=== PATIENT | female | born 1945 | race American Indian/Alaskan Native ===

== ENCOUNTER 2016-06-29 12:27 | Outpatient (CLI) | payer MEDICARE ==
--- NOTE | 2016-06-29 14:07 | Mammography Report ---
BILATERAL MAMMOGRAM with CAD: HISTORY: Cancer screening. Comparison study is dated January 21, 2014. FINDINGS: There are scattered fibroglandular densities (approximately 25%-50% glandular). No mass, distortion, suspicious calcification, or skin change is seen. IMPRESSION: Negative mammogram. There is no mammographic evidence of malignancy. RECOMMENDATION: Follow-up per ACS guidelines. BI-RADS CATEGORY: 1 = Negative ACR BI-RADS MAMMOGRAPHIC CODES: 0 = Needs additional imaging evaluation; 1 = Negative; 2 = Benign; 3 = Probably benign; 4 = Suspicious; 5 = Malignant; 6 = Known biopsy-proven malignancy COMMENT: 1. Dense breast tissue, i.e., adenosis, fibrocystic changes, etc., may obscure an underlying neoplasm. 2. Approximately 10% of cancers are not detected with mammography. 3. A negative mammography report should not delay biopsy if a clinically suspicious mass is present. COMMENT: Patient follow-up letters are generated in [employer].
== END 2016-06-29 12:28 | disposition home or self-care (01) ==
LOC: MAMMO 12:27
PROVIDERS: ATTEND Family Medicine
DX: Z12.31 Encounter for screening mammogram for malignant neoplasm of breast (principal)
CPT/HCPCS: 77067; G0202

== ENCOUNTER 2017-11-25 04:23 | Emergency (ER) | payer MEDICARE ==
[2017-11-25] MEDS ORDERED: TORADOL IV ONE (05:01)
[2017-11-25] MEDS ORDERED: ZOFRAN IV ONE (05:01)
[2017-11-25] MEDS ORDERED: MORPHINE IV ONE (08:51)
--- NOTE | 2017-11-25 08:56 | Emergency Department Report ---
ED Abdominal Pain HPI - General Chief Complaint: Back Pain/Injury Stated Complaint: PAIN ON LEFT SIDE Time Seen by Provider: 11/25/17 08:47 Source: patient Mode of arrival: Ambulatory Limitations: No Limitations - History of Present Illness Initial Comments: Patient is 72 years old female with history of hypertension and diabetes. Patient presented to the ER complaining of left flank pain for the last 2 days. Patient stated that pain is associated with nausea and vomiting. Patient denied any urinary symptoms. She denied any chest pain or shortness of breath. Patient also denied diarrhea or fever. MD Complaint: flank pain -: days(s) Location: L flank Radiation: none Migration to: no migration Severity: moderate Severity scale (0 -10): 9 Quality: sharp - Related Data Home Medications Medication Instructions Recorded Confirmed Last Taken Lisinopril [Zestril TAB] 20 mg PO QDAY 01/16/14 01/16/14 01/16/14 07:00 NIFEdipine XL [Procardia Xl] 30 mg PO QDAY 01/16/14 01/16/14 01/16/14 07:00 Simvastatin [Zocor TAB] 20 mg PO QDAY 01/16/14 01/16/14 01/16/14 07:00 metFORMIN [Glucophage] 500 mg PO BID 01/16/14 01/16/14 01/16/14 07:00 Allergies Allergy/AdvReac Type Severity Reaction Status Date / Time No Known Allergies Allergy Unverified 01/16/14 11:20 ED Review of Systems ROS: Stated complaint: PAIN ON LEFT SIDE Other details as noted in HPI Comment: All other systems reviewed and negative Constitutional: denies: chills, fever Cardiovascular: denies: chest pain, palpitations, dyspnea on exertion, orthopnea Gastrointestinal: abdominal pain, nausea, vomiting. denies: diarrhea, constipation, hematemesis, melena, hematochezia Genitourinary: denies: urgency, dysuria, frequency, hematuria Neurological: denies: headache, weakness, numbness, paresthesias, confusion, abnormal gait ED Past Medical Hx - Past Medical History Hx Hypertension: Yes Hx Diabetes: Yes Hx GERD: Yes - Social History Smoking Status: Former Smoker - Medications Home Medications: Home Medications Medication Instructions Recorded Confirmed Last Taken Type Lisinopril [Zestril TAB] 20 mg PO QDAY 01/16/14 01/16/14 01/16/14 07:00 History NIFEdipine XL [Procardia Xl] 30 mg PO QDAY 01/16/14 01/16/14 01/16/14 07:00 History Simvastatin [Zocor TAB] 20 mg PO QDAY 01/16/14 01/16/14 01/16/14 07:00 History metFORMIN [Glucophage] 500 mg PO BID 01/16/14 01/16/14 01/16/14 07:00 History ED Physical Exam - General Limitations: No Limitations General appearance: alert, in no apparent distress - Head Head exam: Present: atraumatic, normocephalic, normal inspection - Eye Eye exam: Present: normal appearance - ENT ENT exam: Present: normal exam, normal orophraynx, mucous membranes moist - Neck Neck exam: Present: normal inspection, full ROM. Absent: tenderness - Respiratory Respiratory exam: Present: normal lung sounds bilaterally. Absent: respiratory distress, wheezes, rales, rhonchi, stridor, accessory muscle use, decreased breath sounds, prolonged expiratory - Cardiovascular Cardiovascular Exam: Present: regular rate, normal rhythm, normal heart sounds - GI/Abdominal GI/Abdominal exam: Present: soft. Absent: distended, tenderness, guarding, rebound, rigid, normal bowel sounds, organomegaly, mass, bruit, pulsatile mass, hernia - Extremities Exam Extremities exam: Present: normal inspection, full ROM, normal capillary refill - Back Exam Back exam: Present: full ROM, CVA tenderness (L). Absent: tenderness, CVA tenderness (R), muscle spasm, paraspinal tenderness, vertebral tenderness, rash noted - Neurological Exam Neurological exam: Present: alert, oriented X3, CN II-XII intact, normal gait - Skin Skin exam: Present: warm, intact, normal color ED Course Vital Signs 11/25/17 11/25/17 11/25/17 04:43 06:50 09:15 Temperature 97.9 F 98.6 F Pulse Rate 60 60 Respiratory 18 18 18 Rate Blood Pressure 156/77 Blood Pressure 175/79 [Left] O2 Sat by Pulse 100 100 Oximetry 11/25/17 09:33 Temperature Pulse Rate Respiratory 14 Rate Blood Pressure Blood Pressure [Left] O2 Sat by Pulse 100 Oximetry ED Medical Decision Making - Lab Data Result diagrams: 11/25/17 09:13 11/25/17 09:13 - EKG Data EKG shows normal: sinus rhythm Rate: bradycardia - EKG Data Interpretation: no acute changes - Radiology Data Radiology results: report reviewed CT abdomen and pelvis revealed no acute findings. - Medical Decision Making Patient stated that she is feeling much better. Her abdominal pain is completely resolved. Patient stated that she meant just slept wrong. I advised patient to follow up with her primary care physician in the next 2-3 days and to return to the ER if her symptoms are coming back or getting worse. Critical care attestation.: If time is entered above; I have spent that time in minutes in the direct care of this critically ill patient, excluding procedure time. ED Disposition Clinical Impression: Abdominal pain Disposition: DC-01 TO HOME OR SELFCARE Is pt being admited?: No Condition: Stable Instructions: Abdominal Pain (ED) Referrals: PRIMARY CARE, [Primary Care Provider] - 3-5 Days
[2017-11-25 09:17] VITALS: BP 175/79
[2017-11-25 09:26] LABS: Bilirubin,Urine NEG (Negative); Blood,Urine NEG (Negative); Color,Urine Yellow (Yellow); Hyaline Casts,Urine 10 /LPF; Mucus,Urine 1+ /HPF; Urobilinogen,Urine < 2.0 mg/dL (<2.0)
[2017-11-25 09:47] LABS: Basophils % (Auto) 0.5 % (0.0-1.8); Eosinophils % (Auto) 0.3 % (0.0-4.3); Hematocrit 38.3 % (30.3-42.9); Hemoglobin 12.4 gm/dl (10.1-14.3); Lymphocytes # (Auto) 1.6 K/mm3 (1.2-5.4); Lymphocytes % (Auto) 23.7 % (13.4-35.0); Mean Corpuscular HGB Conc 33 % (30-34); Mean Corpuscular Hemoglobin 30 pg (28-32); Mean Corpuscular Volume 92 fl (79-97); Monocytes # (Auto) 0.5 K/mm3 (0.0-0.8); Monocytes % (Auto) 7.2 % (0.0-7.3); Platelet Count 249 K/mm3 (140-440); Red Blood Count 4.18 M/mm3 (3.65-5.03); Red Cell Distribution Width 12.1 % (13.2-15.2)
[2017-11-25 09:53] LABS: Alanine Aminotransferase 11 units/L (7-56); Albumin 4.3 g/dL (3.9-5); BUN/Creatinine Ratio 16; Blood Urea Nitrogen 11 mg/dL (7-17); Calcium 9.2 mg/dL (8.4-10.2); Hemolysis Index 7
--- NOTE | 2017-11-27 14:26 | Cat Scan Report ---
FINAL REPORT EXAM: CT ABDOMEN PELVIS WO CON HISTORY: R flank pain TECHNIQUE: CT images obtained through the Abdomen and Pelvis without contrast. Transaxial,coronal and sagittal reformats are provided. PRIORS: None. FINDINGS: Imaged intrathoracic contents are remarkable for coronary artery disease. Kidneys are normal in size, axis and position. No hydronephrosis or nephrolithiasis. The ureters are normal in course and caliber. No stones are seen within the urinary bladder. Multiple pelvic phleboliths. Anteverted uterus with fibroid associated calcification. A couple of punctate calcified granulomas are present within the liver. The liver, gallbladder, pancreas, spleen, and adrenal glands otherwise demonstrate an unremarkable noncontrast appearance. Hollow enteric organs are normal in course and caliber. No findings of acute appendicitis. No intra-abdominal free air/fluid or lymphadenopathy. Aorta is normal in course and caliber. Superficial soft tissues are unremarkable. No acute or aggressive appearing skeletal findings. IMPRESSION: No CT evidence of obstructive urolithiasis or other acute abdominal or pelvic findings. Coronary artery disease.
== END 2017-11-25 14:02 | disposition home or self-care (01) ==
LOC: ED 04:23
DX: R10.9 Unspecified abdominal pain (principal); I10 Essential (primary) hypertension; E11.9 Type 2 diabetes mellitus without complications; K21.9 Gastro-esophageal reflux disease without esophagitis; Z87.891 Personal history of nicotine dependence; Z79.84 Long term (current) use of oral hypoglycemic drugs
CPT/HCPCS: 36415; 74176; 80053; 81001; 83690; 84484; 85025; 85379; 93005; 93010; 96374; 96375; 99284; J1885; J2270; J2405

== ENCOUNTER 2019-09-05 09:58 | Outpatient (CLI) | payer MEDICARE ==
--- NOTE | 2019-09-05 11:18 | Mammography Report ---
BILATERAL DIGITAL SCREENING MAMMOGRAM WITH CAD HISTORY: SCREENING MAMMO TECHNIQUE: Routine digital mammographic imaging performed. This examination was interpreted with arcadio vazquez benefit of Computer-aided Detection analysis. COMPARISON: 06/29/2016, 01/21/2014, 5-12. FINDINGS: Breast Density: scattered fibroglandular appearance of the breast tissue. Digital CC and MLO views demonstrate no mammographic evidence of malignancy. IMPRESSION: No mammographic evidence of malignancy. If the clinical examination remains stable, recommend bilate ral mammogram in approximately one year. BIRADS 1: Negative. FURTHER INFORMATION: According to the [employer], yearly mammograms are recommend ed starting at age 40 and continuing as long as a woman is in good health. Clinical Breast Exams shou ld be part of a periodic health exam-about every 3 years for women in their 20s and 30s and every yea r for women 40 and over. Breast self exam is an option for women starting in their 20s. Any breast ch latasha noted on a breast self exam should be reported promptly to the patient's healthcare provider. Br east MRI is recommended for women with an approximately 20-25% or greater lifetime risk of breast can cer, including women with a strong family history of breast or ovarian cancer and women who have been treated for Hodgkin's disease. A negative Mammography report should not discourage follow up or biopsy of a clinically significant f inding and/or abnormality. Dense breast tissue may obscure small neoplasms. The patient will be entered into a reminder system with a target due date for the next screening mamm ogram. Signer Name: Jerson White MD Signed: 09/05/2019 11:14 AM Workstation Name: [id number]
== END 2019-09-05 09:59 | disposition home or self-care (01) ==
LOC: MAMMO 09:58
PROVIDERS: ATTEND Family Medicine
DX: Z12.31 Encounter for screening mammogram for malignant neoplasm of breast (principal)
CPT/HCPCS: 77067